=== PATIENT | female | born 1995 | race Caucasian/White ===

== ENCOUNTER 2016-04-16 20:58 | Emergency (ER) | payer BC ==
[~2016-04-16] VITALS: Ht 149.9 cm; Wt 93.8 kg
[~2016-04-16 20:58] MED LIST: MEDR150I INJ; PRLSR20 PO
[2016-04-16 21:00] VITALS: TEMP 36.8; Ht 149.9 cm; Wt 93.8 kg
[2016-04-16] MEDS ORDERED: IBUPROFEN 600 MG TAB PO STA (21:13)
[2016-04-16] MEDS ORDERED: ACETAMINOPHEN 500 MG TAB PO STA (21:13)
[2016-04-16] MEDS ORDERED: FERR1TAB23 PO (21:25)
[2016-04-16] MEDS ORDERED: MULT-506 PO (21:26)
--- NOTE | 2016-04-16 21:49 | DIAGNOSTIC IMAGING REPORT ---
LEFT SHOULDER MIN 2 VIEWS ROUTINE CLINICAL HISTORY: Left shoulder pain status post trauma COMPARISON: None. DISCUSSION: No fractures or dislocations are visualized. IMPRESSION: No acute fractures or dislocations identified. Electronically signed by: Dillon Wesley M.D. 04/16/2016 9:47 PM Dictated Date/Time: 04/16/2016 9:47 PM
--- NOTE | 2016-04-16 21:50 | DIAGNOSTIC IMAGING REPORT ---
LEFT ELBOW MIN 3 VIEWS ROUTINE CLINICAL HISTORY: Left elbow pain status post trauma COMPARISON: None. DISCUSSION: The fat pads are not displaced. No fractures or dislocations are visualized. IMPRESSION: No fractures or dislocations identified. Electronically signed by: Dillon Wesley M.D. 04/16/2016 9:48 PM Dictated Date/Time: 04/16/2016 9:48 PM
--- NOTE | 2016-04-16 21:51 | DIAGNOSTIC IMAGING REPORT ---
LEFT WRIST MIN 3 VIEWS ROUTINE CLINICAL HISTORY: Left wrist pain status post trauma COMPARISON: None. DISCUSSION: No fractures or dislocations are visualized. There is minimal ulnar minus variance IMPRESSION: No fractures or dislocations are visualized. Electronically signed by: Dillon Wesley M.D. 04/16/2016 9:49 PM Dictated Date/Time: 04/16/2016 9:48 PM
[2016-04-16 22:09] VITALS: BP 125/78; PULSE 74; O2SAT 98
--- NOTE | 2016-04-17 18:32 | EMERGENCY ROOM VISIT NOTE ---
History First contact with patient: 21:09 Chief Complaint: ARM PAIN Stated Complaint: LEFT ARM PAIN History of Present Illness The patient is a 20 year old female who presents to the Emergency Room with complaints of left arm pain after falling on ice earlier this afternoon. The patient states she was walking in her driveway, slipped, fell backwards, and nora her left arm. The patient states that she has pain of her shoulder, elbow, and wrist. She does not check her head or lose consciousness. She is without laceration or significant abrasion. No other injuries are noted. The patient has not had improvement with [id number] analgesics. She rates her current discomfort a 6/10. She does not report previous injury to this extremity. Her discomfort does worsen with range of motion, particularly in the shoulder. Review of Systems More than 10 systems were reviewed and otherwise negative with the exception of history of present illness. Past Medical/Surgical History Medical Problems: (1) Concussion (2) No significant past medical history Surgical Problems: (1) No significant past surgical history (2) [place] teeth extracted Family History No pertinent family history Social History Smoking Status: Never Smoker Alcohol Use: none Marital Status: single Occupation Status: [employer] student Current/Historical Medications Scheduled Ferrous Sulfate (Iron), 325 MG PO DAILY Medroxyprogesterone Acetate (C (Depo-Provera Contraceptiv), 150 MG INJ DIRECTED Multivitamin (Multivitamin), 1 TAB PO DAILY Omeprazole (Prilosec), 40 MG PO DAILY Allergies Coded Allergies: No Known Allergies (Unverified , 05/15/15) Physical Exam Vital Signs Date Time Temp Pulse Resp B/P Pulse Ox O2 Delivery O2 Flow Rate FiO2 04/16/16 22:09 74 16 125/78 98 04/16/16 21:00 36.8 93 18 128/86 96 Room Air Pain Rating (0-10): 3.0 Physical Exam VITALS: Vitals are noted on the nurse's note and reviewed by myself. Vital signs stable. GENERAL: Well-developed, well-nourished, white female, who is in no acute distress and resting comfortably. Patient is cooperative with the examination. HEAD: Normocephalic atraumatic. EARS: External ear normal. External auditory canals clear, tympanic membranes pearly dobbs without erythema or effusion bilaterally. EYES: Pupils equal round and reactive to light and accommodation. Conjunctivae without injection, sclerae without icterus. Extraocular movements intact. NOSE: Patent, turbinates without inflammation or discharge. MOUTH: Mucous membranes moist. Tonsils are not enlarged. Pharynx without erythema, blood, or exudate. Uvula midline. Airway patent. NECK: Supple without nuchal rigidity. No lymphadenopathy. No thyromegaly. Cervical spine is nontender. HEART: Regular rate and rhythm without murmurs gallops or rubs. LUNGS: Clear to auscultation bilaterally without wheezes, rales or rhonchi. No retractions or accessory muscle use. ABDOMEN: Positive normal bowel sounds x 4. Soft, nontender, without masses or organomegaly. No guarding or rebound tenderness. MUSCULOSKELETAL: No muscle atrophy, erythema, or edema noted. The left shoulder is tender throughout the supraspinatus into the lateral deltoid. She has decreased range of motion of the left shoulder to both internal and external rotation. She has decreased range of motion to abduction. The left elbow is maximally tender over the olecranon. She is able to supinate and pronate against resistance. She is able to flex and extend. The left wrist is tender throughout the distal ulna. No snuffbox tenderness. Neurovascular status is intact to the distal fingers. NEURO: Patient was alert and oriented to person place and time. CN II through XII grossly intact. Medical Decision & Procedures ER Provider Diagnostic Interpretation: LEFT SHOULDER MIN 2 VIEWS ROUTINE CLINICAL HISTORY: Left shoulder pain status post trauma COMPARISON: None. DISCUSSION: No fractures or dislocations are visualized. IMPRESSION: No acute fractures or dislocations identified. LEFT ELBOW MIN 3 VIEWS ROUTINE CLINICAL HISTORY: Left elbow pain status post trauma COMPARISON: None. DISCUSSION: The fat pads are not displaced. No fractures or dislocations are visualized. IMPRESSION: No fractures or dislocations identified LEFT WRIST MIN 3 VIEWS ROUTINE CLINICAL HISTORY: Left wrist pain status post trauma COMPARISON: None. DISCUSSION: No fractures or dislocations are visualized. There is minimal ulnar minus variance IMPRESSION: No fractures or dislocations are visualized. Medications Administered Medications (Trade) Dose Ordered Sig/Radha Route Start Time Stop Time Status Last Admin Dose Admin Acetaminophen (Tylenol Tab) 1,000 mg NOW STAT PO 04/16/16 21:13 04/16/16 21:15 DC 04/16/16 21:13 1,000 MG Ibuprofen (Motrin Tab) 600 mg NOW STAT PO 04/16/16 21:13 04/16/16 21:15 DC 04/16/16 21:13 600 MG ED Course Physical exam and history were performed. Nursing notes and EMR were reviewed. Patient appears to have fallen at home and suffered injury to her left arm. On exam her most concerning injury appears to be the left shoulder as this has decreased range of motion. The patient was given ibuprofen and Tylenol here in the department. X-rays of the shoulder, elbow, and wrist were performed. The x -rays do not show evidence of acute fractures or dislocation. Overall the patient appears stable for discharge home. I do have some concern that she may have injured her rotator cuff, and discussed this at length with the patient. I offered her a sling, but evidently she does have one at home that she is comfortable using. The patient was asked to follow with orthopedics for further care and management. She may use [id number] analgesics and was otherwise invited back to the ER with any new or worsening symptoms. She is pleased with plan of care and rated her discomfort a 2/10 at the time of departure. The chart was completed utilizing [employer] Speech Voice Recognition Software. Grammatical errors, random word insertions, pronoun errors, and incomplete sentences are an occasional consequence of this system due to software limitations, ambient noise, and hardware issues. Any formal questions or concerns about the content, text, or information contained within the body of this dictation should be directly addressed to the provider for clarification. . Medical Decision Differential diagnosis includes, but is not limited to: Sprain, strain, fracture , dislocation, subluxation, contusion, and others Impression Primary Impression: Fall Additional Impressions: Injury of left lower arm Injury of left upper arm Departure Information Dispostion Home / Self-Care Condition FAIR Referrals Davey Harper, DO Forms HOME CARE DOCUMENTATION FORM, IMPORTANT VISIT INFORMATION Patient Instructions My [facility] Additional Instructions You were seen and evaluated today on an emergency basis only. This is not a substitute for, or an effort to provide, complete comprehensive medical care. It is not possible to recognize and treat all injuries or illnesses in a single emergency department visit. For this reason it is recommended that you followup with Orthopedist, Dr. Harper's office, if symptoms persist over the next 1-2 weeks. Call to make an appointment if needed. Use your arm sling from home for the next 2-3 days to help with relief of symptoms. Remove the arm several times a day and practice range of motion. For baseline pain relief you may alternate ibuprofen and acetaminophen every 4 hours for pain control. Take 600 mg ibuprofen (Advil) and then 4 hours later take 1000 mg acetaminophen (Tylenol). Do not take more than 3000 mg acetaminophen in a single day. You may apply ice 20 minutes on and 20 minutes off You are welcome to return to the emergency department anytime with new, worsening, or concerning symptoms. Problem Qualifiers
== END 2016-04-16 22:26 | disposition home or self-care (01) ==
LOC: C.EDB 20:59 → C.EDD 22:26
DX: S49.92XA Unspecified injury of left shoulder and upper arm, initial encounter (principal); W00.9XXA Unspecified fall due to ice and snow, initial encounter

== ENCOUNTER → 2016-06-30 | Outpatient (CLI) | payer BC ==
[~2016-06-30] MED LIST changes: +FERR1TAB23 PO; +GADAVIST IV PRN; +MULT-506 PO
--- NOTE | 2016-06-30 14:00 | DIAGNOSTIC IMAGING REPORT ---
MRI OF THE BRAIN WITHOUT AND WITH IV CONTRAST CLINICAL HISTORY: Left-sided numbness. Episodic lightheadedness. COMPARISON STUDY: Noncontrast head CT dated 05/15/2015 TECHNIQUE: MRI of the brain was performed from the vertex to the skull base utilizing various T1 and T2 weighted sequences. Following the IV administration of 8.5 mL of Gadavist contrast, additional enhanced images were obtained. FINDINGS: Sagittal T1, axial diffusion, proton density and T2 weighted axial, volumetric FLAIR, and pre and post axial T1-weighted images were acquired. These were supplemented with post gadolinium coronal T1 weighted images. No intra or extra-axial mass lesions are visualized. Axial diffusion-weighted images reveal no evidence of acute or subacute infarction. There is no evidence of ventricular dilatation. Proton density T2-weighted and FLAIR images reveal no significant intraparenchymal signal abnormalities. Left temporal foci of increased signal and left cerebellar foci of increased signal are felt to be artifactual. There are no abnormal flow voids. There is no evidence of pathologic enhancement. There is moderate artifact from a left earring which could not be removed. IMPRESSION: Normal study. Electronically signed by: Dillon Wesley M.D. 06/30/2016 1:59 PM Dictated Date/Time: 06/30/2016 1:56 PM
== END | disposition home or self-care (01) ==
PROVIDERS: ATTEND Psychiatry & Neurology Neurology
DX: R42 Dizziness and giddiness (principal); R20.0 Anesthesia of skin

== ENCOUNTER → 2016-12-01 | Outpatient (CLI) | payer BC ==
[~2016-12-01] MED LIST changes: +CETI10TA84 PO; +DPPI400 INJ
--- NOTE | 2016-12-01 11:20 | DIAGNOSTIC IMAGING REPORT ---
FLUOROSCOPICALLY GUIDED RIGHT SHOULDER ARTHROGRAM PRIOR TO MRI CLINICAL HISTORY: Right shoulder pain. PROCEDURE: Fluoroscopy time was 23 seconds. One fluoroscopic image was obtained. The procedure, risks and benefits were discussed with the patient. The patient agreed to the procedure and informed written consent was obtained. The procedure was performed by Dr. San following a timeout. Skin overlying the right glenohumeral joint was prepped and draped in sterile fashion and local anesthesia was achieved with 1% lidocaine. Under intermittent fluoroscopic guidance, a 22-gauge needle was directed into the right glenohumeral joint. Positioning within the joint space was confirmed with injection of a small amount of contrast. At this time, 10 cc of a mixture of 0.1 cc of gadolinium, 10 cc of normal saline and 10 cc of Optiray 300 was injected into the right glenohumeral joint. The needle was removed. The patient tolerated the procedure well and no immediate complications were evident. The patient was transported to MRI. IMPRESSION: Fluoroscopically guided right shoulder arthrogram prior to MRI. Electronically signed by: Tr San M.D. 12/01/2016 11:19 AM Dictated Date/Time: 12/01/2016 11:18 AM
--- NOTE | 2016-12-01 11:37 | DIAGNOSTIC IMAGING REPORT ---
MRI ARTHROGRAM OF THE RIGHT SHOULDER CLINICAL HISTORY: Right shoulder pain, instability and decreased range of motion. Previous right shoulder surgery. COMPARISON STUDY: No previous studies for comparison. TECHNIQUE: Following a fluoroscopically guided right shoulder arthrogram and utilizing a 1.5 Reyna magnet with dedicated coil, multiplanar, multiecho imaging of the right shoulder was performed without intravenous contrast. FINDINGS: Alignment of the right shoulder is anatomic. There is no marrow edema or marrow replacement. There is minimal capsular hypertrophy at the acromioclavicular joint. The proximal long head of biceps tendon is thinned. There is no full-thickness tear of the proximal long head of biceps tendon. The superior glenoid labrum is diminutive. The remainder of the glenoid labrum is markedly abnormal in appearance, particularly the inferior labrum. The findings favor a complex labral tear. In addition, there may be anterior stripping of the periosteum. There is no full-thickness rotator cuff tear. There is mild signal within distal supraspinatus which suggest tendinopathy with a possible partial-thickness articular surface tear of supraspinatus. Infraspinatus, teres minor and subscapularis are intact. IMPRESSION: 1. Diminutive irregular glenoid labrum suggestive of a complex labral tear with suspected associated anterior stripping of the periosteum of the glenoid. 2. Thinning of the proximal long head of the biceps tendon with no full-thickness tear. 3. Tendinopathy of distal supraspinous with possible partial-thickness articular surface tear of supraspinous. No full-thickness cuff tear. No tendon retraction or muscular atrophy. Electronically signed by: Tr San M.D. 12/01/2016 11:36 AM Dictated Date/Time: 12/01/2016 11:24 AM
== END | disposition home or self-care (01) ==
LOC: C.MRIBC 09:49
PROVIDERS: ATTEND Orthopaedic Surgery
DX: M25.311 Other instability, right shoulder (principal); M75.81 Other shoulder lesions, right shoulder; R93.7 Abnormal findings on diagnostic imaging of other parts of musculoskeletal system

== ENCOUNTER → 2017-01-26 | Day surgery (SDC) | payer BC ==
[2017-01-11 11:46] VITALS: Ht 149.9 cm; Wt 86.4 kg
[~2017-01-26] VITALS: Ht 149.9 cm; Wt 86.4 kg
[~2017-01-26] MED LIST changes: +ATROPINE SULFATE 0.1 MG/ML 5ML SYR IV PRN; +BUPIVACAINE/EPINEPHRINE 0.25% 1:200,000 30 ML VIAL ONE; +CEFAZOLIN 2000MG IV PUSH 10 ML IV SCH; +DEXAMETHASONE SOD INJ 4 MG/ML VIAL ONE; +EpINEphrine INJ 1MG/ML AMP 1 MG/ML AMP ONE; +FENTANYL CITRATE INJ 50 MCG/1 ML 2 ML VIAL IV PRN; +FENTANYL CITRATE INJ 50 MCG/1 ML 2 ML VIAL ONE; -FERR1TAB23 PO; -GADAVIST IV PRN; +GLYCOPYRROLATE INJ 0.2 MG/ML VIAL ONE; +KETO10TA PO; +KETOROLAC TROMETHAMINE 30 MG/ML VIAL IV. PRN; +LACTATED RINGER'S 1000ML 1,000 ML IV SCH; +LIDOCAINE HCL 2% 2 ML VIAL (20MG/ML) ONE; -MEDR150I INJ; +MIDAZOLAM HCL 1 MG/ML 2ML VIAL ONE; -MULT-506 PO; +NEOSTIGMINE METHYLSULFATE 5 MG/5 ML SYR ONE; +ONDANSETRON INJ 2 MG/ML 2 ML VIAL IV PRN; +ONDANSETRON INJ 2 MG/ML 2 ML VIAL ONE; +OXYC-57 PO; +OXYCODONE/ACETAMINOPHEN 5-325 TAB PO PRN; +PROPOFOL IV EMULSION 10 MG/ML 20 ML VIAL IV ONE; +ROCURONIUM BROMIDE 10 MG/ML 5 ML VIAL IV ONE; +ROPIVACAINE 0.5% 5 MG/ML 30 ML VIAL ONE; +SODIUM CHLORIDE 0.9% 1000ML 1,000 ML IV SCH
--- NOTE | 2017-01-26 06:59 | History & Physical Bridge - SC ---
H&P Re-Evaluation Bridge Note: I have examined the patient, reviewed the History & Physical and in the interval since the performance of the History & Physical I have noted the following changes of clinical significance: No changes noted
--- NOTE | 2017-01-26 10:54 | Discharge Instructions-SurgCtr ---
Discharge Instructions Date of Service Jan 26, 2017. Visit Reason for Visit: Right Shoulder Unstable Joint, Pain Discharge Discharge Diagnosis / Problem: SAME ABOVE Discharge Goals Goal(s): Decrease discomfort, Improve function Activity Recommendations Activity Limitations: as noted below Lifting Limitations: until after follow-up appointment Exercise/Sports Limitations: until after follow-up appointment Shower/Bathe: tomorrow Anesthesia . Post Anesthesia Instructions: If you have had General Anesthesia or IV Sedation: * Do not drive today. * Resume driving when surgeon permits. * Do not make important decisions or sign legal documents today. * Call surgeon for: 1. Temperature elevations greater than 101 degrees F. 2. Uncontrollable pain. 3. Excessive bleeding. 4. Persistent nausea and vomiting. 5. Medication intolerance (nausea, vomiting or rash). * For nausea and vomiting use only clear liquids such as: tea, soda, bouillon until nausea subsides, then gradually increase diet as tolerated. * If you have any concerns or questions, call your surgeon's office. If physician is unavailable and it is an emergency, call 911 or go to the nearest emergency room. . Instructions / Follow-Up Instructions / Follow-Up MEDICATIONS: * Resume previous medications unless instructed otherwise by your surgeon. * Always take pain medication on a full stomach or with food to avoid upset stomach. * Do not drink alcohol or drive while taking narcotics. * Ibuprofen or Tylenol may be taken if narcotic not needed. SPECIAL CARE INSTRUCTIONS: __ None _X_ Keep extremity elevated and iced x 48 hours; apply ice 20-30 minutes 8-10 times/day. May remove at night. _X_ Sling (MAY REMOVE AFTER 48 HOURS ONLY TO SHOWER( _X_24 hrs/day __ Remove at night __ Shoulder Immobilizer __ 24 hrs/day __ Remove at night _X_ Dressing __ Maintain until seen in office, may shower with plastic over site _X_ Remove dressings in 24-48 hours and then may shower _X_ Cover incisions with band-aids after showering __ Do not remove steri-strips Call physician if chills or temperature rises above 102 degrees or pain unrelieved by prescribed pain medications at . . Diet Recommendations Home Diet: no limitations Fluid Restriction: None Procedures Procedures Performed: Right Shoulder Arthrscopy, Revision Bankhart Procedure Pending Studies Studies pending at discharge: no Work Instructions Return To Work: after follow-up Lifting Limitations: NO LIFTING WITH RIGHT ARM Medical Emergencies . Who to Call and When: Medical Emergencies: If at any time you feel your situation is an emergency, please call 911 immediately. . Non-Emergent Contact Non-Emergency issues call your: Primary Care Provider Call Non-Emergent contact if: you have a fever, temperature is above 101.5 . . "Provider Documentation" section prepared by John Hart. .
[2017-01-26 11:45] VITALS: TEMP 36.3
--- NOTE | 2017-01-26 11:56 | Anesthesia Progress Nt - [facility] ---
Anesthesia Post Op Note Date & Time Jan 26, 2017 at 11:55 Vital Signs Pain Intensity: 0 Vital Signs Past 12 Hours Date Time Temp Pulse Resp B/P (MAP) Pulse Ox O2 Delivery O2 Flow Rate FiO2 01/26/17 11:28 85 22 97 01/26/17 11:28 84 22 01/26/17 11:27 88 22 98 01/26/17 11:27 87 22 01/26/17 11:26 139/84 01/26/17 11:26 37.0 85 22 139/84 98 Room Air 01/26/17 11:24 87 20 01/26/17 11:24 87 20 95 01/26/17 11:23 83 22 97 01/26/17 11:23 84 22 01/26/17 11:22 87 20 01/26/17 11:22 87 20 97 01/26/17 11:21 141/85 01/26/17 11:17 84 24 98 01/26/17 11:17 84 24 01/26/17 11:16 124/100 01/26/17 11:14 85 16 98 01/26/17 11:14 87 16 01/26/17 11:11 109/82 01/26/17 11:09 90 20 100 01/26/17 11:09 90 20 01/26/17 11:06 126/78 01/26/17 11:04 87 18 100 01/26/17 11:04 87 18 01/26/17 11:03 100 14 95 01/26/17 11:03 99 14 01/26/17 11:02 104 21 01/26/17 11:02 104 21 100 01/26/17 11:01 125/77 01/26/17 10:59 98 18 100 01/26/17 10:59 95 18 01/26/17 10:56 111/99 01/26/17 10:55 111/79 01/26/17 10:54 106 22 01/26/17 10:54 105 22 01/26/17 10:50 158/101 01/26/17 10:50 36.5 109 18 158/101 94 Mask 8 01/26/17 09:09 99 36 129/107 99 01/26/17 09:09 95 01/26/17 09:08 89 01/26/17 09:08 87 28 100 01/26/17 09:06 160/115 10/26/17 09:03 88 31 100 01/26/17 09:03 91 01/26/17 09:01 145/111 01/26/17 08:58 88 0 99 01/26/17 08:58 87 01/26/17 08:56 141/98 01/26/17 08:53 80 01/26/17 08:53 79 0 141/111 98 01/26/17 08:48 82 0 01/26/17 08:43 83 0 01/26/17 08:38 97 0 01/26/17 08:33 84 0 01/26/17 08:28 0 01/26/17 07:41 36.8 93 16 141/99 (113) 96 Room Air Notes Mental Status: alert / awake / arousable, participated in evaluation Pt Amnestic to Procedure: Yes Nausea / Vomiting: adequately controlled Pain: adequately controlled Airway Patency, RR, SpO2: stable & adequate BP & HR: stable & adequate Hydration State: stable & adequate Anesthetic Complications: no major complications apparent
[2017-01-26 12:22] VITALS: BP 131/84; PULSE 88; O2SAT 95
--- NOTE | 2017-01-26 16:39 | OPERATIVE REPORT ---
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 POSTOPERATIVE DIAGNOSIS: Same. PROCEDURE: Right shoulder diagnostic arthroscopy with revision Bankart repair and extensive debridement. SURGEON: Dr. Davey Harper. ARNP: John Hart PA-C, whose assistance was necessary for positioning the arm and helping with instrumentation. ANESTHESIA: General with a right interscalene nerve block. COMPLICATIONS: None. CONDITION: Stable to PACU. INDICATIONS: Sharon is a pleasant 21-year-old female who underwent a right shoulder capsular plication at an outside institution about 3 years ago. She initially did well but unfortunately she began having recurrent dislocations and popping of her shoulder. MRI showed laxity of the anterior capsule and possible failure of the repair. After failing extensive conservative treatment, she elected to undergo arthroscopy. DESCRIPTION OF PROCEDURE: On 01/26/2017, she arrived at [facility] for the above procedure. She was seen in the preoperative holding area and the operative extremity was identified and signed. She was given preoperative antibiotics and a right interscalene nerve block. She was taken back to the operating room, laid on the table in supine position and put under general anesthesia. She was then put in the lateral decubitus position. The right shoulder was prepped and draped in sterile fashion and then it was brought to an Arthrex 3-point distractor. A time-out was done and the patient and operative extremity was properly identified. A scope was introduced in the posterior portal. There was no cartilage damage on the glenoid, but there was about a 1 cm area of cartilage loss on the anterior humeral head. There were 3 plication sutures around the labrum all with a knot stacks that were within the joint. There was a lot of scarring of the anterior and inferior capsule and labral structures. There was some scarring of the anterior interval as well from the previous procedure. An anterior portal was made just superior to the subscapularis and a 7 mm cannula was placed. An additional rotator interval portal was made just anterior to the supraspinatus. A 5 mm percutaneous cannula was then placed in the 5 o'clock portal. Time was spent debriding the loose tissue and the loose capsule and labral tissue. Prior knots were then cut and removed. Time was spent then debriding back the labrum and removing the anterior cartilage rim of the glenoid down to bleeding bone. The scope was then placed into one of the anterior portals. The posterior labrum was checked extensively and completely intact. The labrum was then fixed with four 3.0 Arthrex BioComposite PushLock suture anchors with a luggage tag suture tape fixed. The suture tape was passed through the capsule and around the labral structure. Significant time was spent ensuring that had an appropriate capture of the capsule as well as the labrum. This was difficult because of the previous repair and failure. The suture tape was then looped in a luggage tag stitch and incorporated in a 2.9 mm Arthrex BioComposite PushLock anchor. This gave a nice knotless repair. I was able to get a little bit of a bump along the anterior margin. An anchor was placed at the 5:30 position, 4:30, 3:30 and 2:30 positions. I was able to get a nice repair of the anterior structures. Multiple pictures were taken from both the anterior portal was in the posterior portals. Arthroscopic instruments were removed from the shoulder. Portal sites were closed with 3-0 nylon. She was then placed in a soft dressing and an abduction arm sling. She was then extubated, transferred to a [facility] and taken to the postanesthesia care unit in stable condition. She tolerated the procedure well. This case took about 50% longer than a normal Bankart repair because it was a revision case. I tried to use the old portals, which made visualization a little bit more difficulty and the tissue quality of the capsule and labral structures were poor because of the previous repair. All previous sutures had to be removed as well. I attest to the content of the Intraoperative Record and any orders documented therein. Any exception s are noted below.
--- NOTE | 2017-01-26 18:38 | [facility] Post Operative Brief Note ---
Immediate Operative Summary Operative Date Jan 26, 2017. Pre-Operative Diagnosis Right Shoulder Unstable Joint, Pain Post-Operative Diagnosis Same Procedure(s) Performed Right Shoulder Arthrscopy, Revision Bankhart Procedure Surgeon Dr. Neva Jaramillo Measurement Supervisor Surgeon(s) Cathy Hart PA-C Estimated Blood Loss 5 cc Findings as above Specimens None Complication(s) None Disposition Recovery Room / PACU
== END | disposition home or self-care (01) ==
LOC: X.SURG 07:29
PROVIDERS: ATTEND Orthopaedic Surgery
DX: M25.311 Other instability, right shoulder (principal); S46.811A Strain of other muscles, fascia and tendons at shoulder and upper arm level, right arm, initial encounter; X58.XXXA Exposure to other specified factors, initial encounter

== ENCOUNTER → 2017-11-08 | Outpatient (CLI) | payer BC ==
[~2017-11-08] MED LIST changes: -ATROPINE SULFATE 0.1 MG/ML 5ML SYR IV PRN; -BUPIVACAINE/EPINEPHRINE 0.25% 1:200,000 30 ML VIAL ONE; -CEFAZOLIN 2000MG IV PUSH 10 ML IV SCH; -DEXAMETHASONE SOD INJ 4 MG/ML VIAL ONE; -EpINEphrine INJ 1MG/ML AMP 1 MG/ML AMP ONE; -FENTANYL CITRATE INJ 50 MCG/1 ML 2 ML VIAL IV PRN; -FENTANYL CITRATE INJ 50 MCG/1 ML 2 ML VIAL ONE; -GLYCOPYRROLATE INJ 0.2 MG/ML VIAL ONE; -KETO10TA PO; -KETOROLAC TROMETHAMINE 30 MG/ML VIAL IV. PRN; -LACTATED RINGER'S 1000ML 1,000 ML IV SCH; -LIDOCAINE HCL 2% 2 ML VIAL (20MG/ML) ONE; -MIDAZOLAM HCL 1 MG/ML 2ML VIAL ONE; -NEOSTIGMINE METHYLSULFATE 5 MG/5 ML SYR ONE; -ONDANSETRON INJ 2 MG/ML 2 ML VIAL IV PRN; -ONDANSETRON INJ 2 MG/ML 2 ML VIAL ONE; -OXYC-57 PO; -OXYCODONE/ACETAMINOPHEN 5-325 TAB PO PRN; -PROPOFOL IV EMULSION 10 MG/ML 20 ML VIAL IV ONE; -ROCURONIUM BROMIDE 10 MG/ML 5 ML VIAL IV ONE; -ROPIVACAINE 0.5% 5 MG/ML 30 ML VIAL ONE; -SODIUM CHLORIDE 0.9% 1000ML 1,000 ML IV SCH
--- NOTE | 2017-11-08 12:48 | DIAGNOSTIC IMAGING REPORT ---
R FOOT MIN 3 VIEWS ROUTINE CLINICAL HISTORY: 22 years-old Female presenting with FOOT PAIN, landed wrong on foot after jumping from truck on Monday. TECHNIQUE: Frontal, oblique, lateral views of the right foot were obtained. COMPARISON: None. FINDINGS: Symphalangism of the middle and distal phalanges of the fifth toe noted, normal variant. No acute fracture or malalignment. No advanced degenerative change. No radiographic soft tissue abnormality. IMPRESSION: No acute osseous injury. Electronically signed by: Aryan Sanz M.D. 11/08/2017 12:46 PM Dictated Date/Time: 11/08/2017 12:45 PM
== END | disposition home or self-care (01) ==
LOC: C.RADBC 12:05
PROVIDERS: ATTEND Nurse Practitioner Adult Health
DX: M79.671 Pain in right foot (principal)